=== PATIENT | male | born 2000 | race Caucasian/White ===

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

== ENCOUNTER 2024-09-19 20:40 | Emergency (ER) | payer MEDICAID, OTHER ==
[~2024-09-19] VITALS: Ht 170.2 cm; Wt 66.7 kg
[2024-09-19 21:31] VITALS: TEMP 99
[2024-09-19 22:21] LABS: BILIRUBIN,URINE NEGATIVE (Neg); CLARITY,URINE CLEAR (Clear); COLOR,URINE YELLOW (Yellow); GLUCOSE, URINE NEGATIVE (Neg); KETONES,URINE NEGATIVE (Neg); LEUKOCYTE ESTERASE ,URINE NEGATIVE (Neg); NITRITES, URINE NEGATIVE (Neg); OCCULT BLOOD,URINE NEGATIVE (Neg); PROTEIN,URINE NEGATIVE (Neg); UROBILINOGEN,URINE 0.2 E.U/dL (0.2-1.0)
[2024-09-19 22:30] VITALS: BP 141/84; PULSE 87; RESP 16; O2SAT 100
[2024-09-19 22:37] LABS: URINE AMPHETAMINE SCREEN NEGATIVE (Neg); URINE BARBITUATE SCREEN NEGATIVE (Neg); URINE BENZODIAZEPINES SCREEN NEGATIVE (Neg); URINE CANNABINOID SCREEN POSITIVE (Neg); URINE COCAINE SCREEN NEGATIVE (Neg); URINE METHADONE SCREEN NEGATIVE (Neg); URINE OPIATE SCREEN NEGATIVE (Neg); URINE PHENCYCLIDINE SCREEN NEGATIVE (Neg)
[2024-09-19] MEDS: ibuprofen tablet 400 MG TABLET PO ONE (22:46)
[2024-09-19] MEDS: acetaminophen 325mg tablet PO ONE (22:47)
[2024-09-19 22:58] LABS: UA COLLECTION TYPE CLN CATCH MIDSTREAM
== END 2024-09-19 23:26 | disposition home or self-care (01) ==
LOC: ER 20:41
DX: M54.50 Low back pain, unspecified (principal); J45.909 Unspecified asthma, uncomplicated; F32.A Depression, unspecified
CPT/HCPCS: 72100; 80305; 81003; 99284